=== PATIENT | female | born 1960 | race Caucasian/White ===

== ENCOUNTER → 2022-04-14 | Outpatient (CLI) | payer BC ==
--- NOTE | 2022-04-14 20:00 | BD ---
EXAMINATION TYPE: Axial Bone Density DATE OF EXAM: 04/14/2022 COMPARISON: NONE CLINICAL HISTORY: 61 years year old Female. ICD-10 CODE: M85.88 DISRD BONE DENSI Nuclear Medicine Study in the last 2 weeks: Barium Study in the last week: : Height: Weight: FRAX RISK QUESTIONS: Alcohol (3 or more units per day): NO Family History (Parent hip fracture): YES MOTHER Glucocorticoids (More than 3mos): NO History of Fracture in Adulthood: BILATERAL FEET Secondary Osteoporosis: 1. Type 1 Diabetes: NO 2. Hyperthyroidism: NO 3. Menopause before 45: NO 4. Malnutrition: NO 5. Chronic liver disease: NO Rheumatoid Arthritis: NO Current Tobacco Use: NO RISK FACTORS HISTORY OF: Hip Fracture (Right/Left): NO Spine Fracture: NO History of Wrist Fracture: NO Surgery to Spine/Hip(right/left)/Wrist (right/left): NO Family History of Osteoporosis: MOTHER Active: NO Diet low in dairy products/other sources of calcium: YES Postmenopausal woman: YES Take estrogen and/or progesterone medications: NO Lost more than 2 inches in height since high school: NO Frequent falls: NO Poor Health: NO Hyperparathyroidism: NO Adrenal Insufficiency: NO MEDICATIONS: Prednisone or other steroids: NO Thyroid Medications: NO Osteoporosis Medications: NO Additional Medications: VIT D, MAGNESIUM, CHOLESTEROL MEDS, ZANTAX, DEPRESSION MEDS, EXAM MEASUREMENTS: Bone mineral densitometry was performed using the [employer] System. Bone mineral density as measured about the Lumbar spine is: ----- L1-L4(G/cm2): 1.059 T Score Values are as follows: ----- L1: -1.0 ----- L2: -1.9 ----- L3: -1.4 ----- L4: -0.4 ----- L1-L4: -1.0 BASELINE STUDY Bone mineral density about the R hip (g/cm2): 0.920 Bone mineral density about the L hip (g/cm2): 0.864 T Score values are as follows: -----R Neck: -0.8 -----L Neck: -1.3 -----R Total: -0.1 -----L Total: -0.5 BASELINE STUDY FRAX%s: The graph provided illustrates a 14.7% chance for a major osteoporotic fx and a 0.5% chance f or the hips probability for fx in 10 years time. IMPRESSION: Osteopenia (T Score between -2.5 and -1). There is slightly increased risk of fracture and the patient may be considered for treatment. Re-Screen 2-5 years. NOTE: T-SCORE=SD OF THE YOUNG ADULT MEAN.
--- NOTE | 2022-04-15 08:59 | MM ---
Reason for Exam: Screening (asymptomatic). Last screening mammogram was performed 12 month(s) ago. Patient History: Menarche at age 15. First Full-Term at age 27. Postmenopausal. 2006, MG stereo VAD BX RT on the Right side. 2001, Excisional Biopsy on the Left side. Last menstrual period: Risk Values: Kimberlee 5 year model risk: 2.3%. NCI Lifetime model risk: 12.2%. Prior Study Comparison: 01/12/2020 Bilateral MG 3D screening mammo w/cad, [place]. 02/25/2021 Bilateral MG 3D screening mammo w/cad, [place]. Tissue Density: The breast tissue is heterogeneously dense. This may lower the sensitivity of mammography. Findings: Analyzed By CAD. There are benign-appearing round calcifications scattered throughout the bilateral breasts redemonstrated. Mammotome biopsy clip in the right breast is again seen. There is no suspicious new group of microcalcifications or new suspicious mass in either breast. Overall Assessment: Benign, BI-RAD 2 Management: Screening Mammogram of both breasts in 1 year. A clinical breast exam by your physician is recommended on an annual basis and results should be correlated with mammographic findings. Electronically signed and approved by: Carlos Wade M.D.
== END | disposition home or self-care (01) ==
LOC: RADMAMWWP 16:04
PROVIDERS: ATTEND Family Medicine
DX: Z12.31 Encounter for screening mammogram for malignant neoplasm of breast (principal); M85.88 Other specified disorders of bone density and structure, other site
CPT/HCPCS: 77063; 77067; 77080

== ENCOUNTER → 2023-03-20 | Outpatient (CLI) | payer BC ==
--- NOTE | 2023-03-20 09:19 | MM ---
Reason for Exam: Clinical finding. Last screening mammogram was performed 12 month(s) ago. Patient History: Menarche at age 15. First Full-Term at age 27. Postmenopausal. 2006, MG stereo VAD BX RT on the Right side. 2001, Excisional Biopsy on the Left side. Risk Values: Kimberlee 5 year model risk: 2.4%. NCI Lifetime model risk: 11.9%. Tissue Density: The breast tissue is heterogeneously dense. This may lower the sensitivity of mammography. Findings: Analyzed By CAD. Postoperative distortion left breast. No evidence for mass. No suspicious microcalcifications seen. Overall Assessment: Incomplete: need additional imaging evaluation, BI-RAD 0 Management: Diagnostic Breast Ultrasound of the left breast. . Results were given to the patient verbally at the time of exam. Patient should continue monthly self-breast exams. A clinical breast exam by your physician is recommended on an annual basis. This exam should not preclude additional follow-up of suspicious palpable abnormalities. Note on Kimberlee scores and lifetime risk: 1. A Kimberlee score greater than 3% is considered moderate risk. If this is the case, consider specialist referral to assess eligibility for a risk reducing agent. 2. If overall lifetime risk for the development of breast cancer is 20% or higher, the patient may qualify for future screening with alternating mammogram and breast MRI. Electronically signed and approved by: Sukhi Blue M.D. Radiologis
--- NOTE | 2023-03-20 09:46 | USB ---
Reason for Exam: Clinical finding. Patient History: Menarche at age 15. First Full-Term at age 27. Postmenopausal. 2006, MG stereo VAD BX RT on the Right side. 2001, Excisional Biopsy on the Left side. Risk Values: Kimberlee 5 year model risk: 2.4%. NCI Lifetime model risk: 11.9%. Technique: Method: Targeted. Prior Study Comparison: 01/12/2020 Bilateral MG 3D screening mammo w/cad, [place]. 02/25/2021 Bilateral MG 3D screening mammo w/cad, [place]. 04/14/2022 Bilateral MG 3D screening mammo w/cad, [facility]. Findings: The upper outer quadrant of the left breast, the axilla of the left breast and the retroareolar of the left breast were scanned. No solid or cystic masses are identified.. Overall Assessment: Negative, BI-RAD 1 Management: Screening Mammogram of both breasts in 1 year. A clinical breast exam by your physician is recommended on an annual basis and results should be correlated with mammographic findings. This exam should not preclude additional follow-up of suspicious palpable abnormalities. Results were given to the patient verbally at the time of exam. Electronically signed and approved by: Sukhi Blue M.D. Radiologis
== END | disposition home or self-care (01) ==
LOC: RADMAMWWP 08:56
PROVIDERS: ATTEND Family Medicine
DX: N63.21 Unspecified lump in the left breast, upper outer quadrant (principal); Z78.0 Asymptomatic menopausal state
CPT/HCPCS: 77062; 77066

== ENCOUNTER → 2024-05-31 | Outpatient (CLI) | payer BC ==
--- NOTE | 2024-05-31 16:04 | US ---
EXAMINATION TYPE: US transvaginal DATE OF EXAM: 05/31/2024 COMPARISON: NONE CLINICAL INDICATION: Female, 63 years old with history of N93.0 POST COITAL BLEEDING N95.0; TECHNIQUE: Transvaginal (TV). Transvaginal exam only per physician order FINDINGS: Date of LMP: 12 years ago EXAM MEASUREMENTS: Uterus: 6.4 x 2.7 x 3.9 cm Endometrial Stripe: 0.3 cm Right Ovary: not seen Left Ovary: not seen 1. Uterus: mildly heterogeneous finding is nonspecific. No definite focal uterine fibroid. Correlate with MRI as clinically warranted. 2. Endometrium: appears wnl 3. Right Ovary: not seen due to overlying bowel gas 4. Left Ovary: not seen due to overlying bowel gas 5. Bilateral Adnexa: wnl 6. Posterior cul-de-sac: wnl IMPRESSION: No definite acute process. Endometrial stripe measures 3 mm. Ovaries are obscured by jamie l gas. See above. [facility], , 05/31/2024 4:02 PM
== END | disposition home or self-care (01) ==
LOC: RADUSWWP 15:31
PROVIDERS: ATTEND Family Medicine
DX: N93.0 Postcoital and contact bleeding (principal); N95.0 Postmenopausal bleeding; R14.3 Flatulence
CPT/HCPCS: 76830

== ENCOUNTER → 2024-06-20 | Outpatient (CLI) | payer BC ==
--- NOTE | 2024-06-21 08:17 | MM ---
Reason for Exam: Screening (asymptomatic). Last mammogram was performed 1 year(s) and 3 month(s) ago. Patient History: Menarche at age 15. First Full-Term at age 27. Postmenopausal. 2006, MG stereo VAD BX RT on the Right side. 2001, Excisional Biopsy on the Left side. Risk Values: Kimberlee 5 year model risk: 2.5%. NCI Lifetime model risk: 11.6%. Prior Study Comparison: 02/25/2021 Bilateral MG 3D screening mammo w/cad, [place]. 04/14/2022 Bilateral MG 3D screening mammo w/cad, [facility]. 03/20/2023 Bilateral MG 3D diag mammo w/cad [facility], [facility]. Tissue Density: The breasts are heterogeneously dense, which may obscure small masses. Findings: Analyzed By CAD. Right breast biopsy clip. Right breast: There is no suspicious group of microcalcifications or new suspicious mass. Benign-appearing calcifications right breast. Left breast: There is no suspicious group of microcalcifications or new suspicious mass. Overall Assessment: Benign, BI-RAD 2 Management: Screening Mammogram of both breasts in [address] [facility] will attempt to contact patient to return for supplemental views and ultrasound if indicated. Patient should continue monthly self-breast exams. A clinical breast exam by your physician is recommended on an annual basis. This exam should not preclude additional follow-up of suspicious palpable abnormalities. Note on Kimberlee scores and lifetime risk: 1. A Kimberlee score greater than 3% is considered moderate risk. If this is the case, consider specialist referral to assess eligibility for a risk reducing agent. 2. If overall lifetime risk for the development of breast cancer is 20% or higher, the patient may qualify for future screening with alternating mammogram and breast MRI. [facility], , 06/21/2024 8:15 AM. Electronically signed and approved by: Homer Womack DO
--- NOTE | 2024-06-21 11:44 | BD ---
EXAMINATION TYPE: Axial Bone Density DATE OF EXAM: 06/20/2024 CLINICAL HISTORY: 63 years old Female. ICD-10 CODE: M89.9 DISORDER OF BONE , Additional History: Height: 59 Weight: 151.2 FRAX RISK QUESTIONS: Alcohol (3 or more units per day): no Family History (Parent hip fracture): yes Glucocorticoids (More than 3mos): no (Ex: prednisone, prednisolone, methylprednisolone, dexamethasone, and hydrocortisone). History of Fracture in Adulthood: yes Secondary Osteoporosis: 1. Type 1 Diabetes: no 2. Hyperthyroidism: no 3. Menopause before 45: no 4. Malnutrition: no 5. Chronic liver disease: no Rheumatoid Arthritis: no Current Tobacco Use: no RISK FACTORS HISTORY OF: Surgery to Spine/Hip(right/left)/Wrist (right/left): no EXAM MEASUREMENTS: Bone mineral densitometry was performed using the [employer] System. Bone mineral density as measured about the Lumbar spine is: ----- L1-L4(G/cm2): 1.128 T Score Values are as follows: ----- L1: -0.1 ----- L2: -0.6 ----- L3: -0.6 ----- L4: -0.5 ----- L1-L4: -0.4 Z Score Values are as follows: ----- L1: 1.1 ----- L2: 0.6 ----- L3: 0.6 ----- L4: 0.7 ----- L1-L4: 0.8 Bone mineral density has: increased 2.6 % since study of: 04.14.2022 Bone mineral density about the R hip (g/cm2): 0.923 Bone mineral density about the L hip (g/cm2): 0.939 T Score values are as follows: -----R Neck: -1.2 -----L Neck: -1.2 -----R Total: -0.7 -----L Total: -0.58 Z Score values are as follows: -----R Neck: 0.0 -----L Neck: 0.0 -----R Total: 0.3 -----L Total: 0.4 Bone mineral density has: decreased -4.1 % since study of: 04.14.2022 FRAX%s: The graph provided illustrates a 24.6% chance for a major osteoporotic fx and a 1.0% chance f or the hips probability for fx in 10 years time. IMPRESSION: Osteopenia (T Score between -2.5 and -1). There is slightly increased risk of fracture and the patient may be considered for treatment. Re-Screen 2-5 years. NOTE: T-SCORE=SD OF THE YOUNG ADULT MEAN. [facility], , 06/21/2024 11:42 AM
== END | disposition home or self-care (01) ==
LOC: RADMAMWWP 14:19
PROVIDERS: ATTEND Family Medicine
DX: Z12.31 Encounter for screening mammogram for malignant neoplasm of breast (principal); M89.9 Disorder of bone, unspecified; Z78.0 Asymptomatic menopausal state; R92.333 Mammographic heterogeneous density, bilateral breasts; Z98.82 Breast implant status; M85.89 Other specified disorders of bone density and structure, multiple sites
CPT/HCPCS: 77063; 77067; 77080